=== PATIENT | female | born 2005 | race Caucasian/White ===

== ENCOUNTER 2025-01-14 20:06 | Inpatient (IN) | payer BC ==
[2025-01-14] MEDS ORDERED: Sodium Chloride 0.9% 10 ML Syringe FLUSH PRN (20:29)
[2025-01-14] MEDS ORDERED: Naloxone 0.4 MG/ML SDV IVPUSH PRN (20:35)
[2025-01-14 20:36] LABS: BASOPHILS ABSOLUTE AUTO 0.1 K/mm3 (0.0-0.3); BASOPHILS PERCENT AUTO 0.4 % (0.0-1.0); EOSINOPHILS ABSOLUTE AUTO 0.0 K/mm3 (0.0-0.7); EOSINOPHILS PERCENT AUTO 0.0 % (0.0-5.0); IMMATURE GRAN ABSOLUTE AUTO 0.05 K/mm3 (0.00-0.05); IMMATURE GRAN PERCENT AUTO 0.3 % (0.0-0.4); LYMPHOCYTES ABSOLUTE AUTO 1.1 K/mm3 (2.0-8.8); LYMPHOCYTES PERCENT AUTO 6.5 % (50.0-65.0); MEAN PLATELET VOLUME 10.0 fl (9.4-12.3); MONOCYTES ABSOLUTE AUTO 0.5 K/mm3 (0.1-1.4); MONOCYTES PERCENT AUTO 2.9 % (2.0-10.0); NEUTROPHILS ABSOLUTE AUTO 15.0 K/mm3 (1.5-8.5); NEUTROPHILS PERCENT AUTO 89.9 % (35.0-45.0); NRBC ABSOLUTE 0.00 (0.00-0.03); NRBC PERCENT 0.0 % (0.0-0.2); PLATELET COUNT,PLT 294 K/mm3 (150-400); RED BLOOD CELL COUNT 4.46 M/mm3 (4.10-5.30); WHITE BLOOD CELL COUNT,WBC 16.72 K/mm3 (4.5-13.5)
[2025-01-14] MEDS: Ondansetron 4 MG/2 ML SDV IVPUSH ONE (20:42)
[2025-01-14 20:56] LABS: A/G RATIO 1.1 (1-2); ALANINE AMINOTRANSFERASE,ALT 24.0 U/L (14-59); ASPARTATE AMNIOTRANSFERASE,AST 18.0 U/L (15-37); BILIRUBIN TOTAL 0.6 mg/dL (0.2-1.0); BLOOD UREA NITROGEN,BUN 17.0 mg/dL (7-18); CARBON DIOXIDE,CO2 25.0 mEq/L (21-32); CHLORIDE,CL 101.0 mEq/L (98-107); CREATININE 0.8 mg/dL (0.55-1.02); EST CRCL DRUG DOSING (CG) 118.21 mL/min; ESTIMATED GFR 109.0 mL/min (>60); GLUCOSE RANDOM 133.0 mg/dL (70-99); POTASSIUM,K 3.9 mEq/L (3.5-5.1); PROTEIN TOTAL,TP 7.5 g/dl (6.4-8.2); SODIUM,NA 137.0 mEq/L (136-145)
[2025-01-14] MEDS: Iopamidol 612 MG/ML 100 ML Bottle IVPUSH ONE (21:23)
[2025-01-14] MEDS: Sodium Chloride 0.9% 10 ML Syringe FLUSH ONE (21:24)
[2025-01-14] MEDS: Meropenem 1 GM SDV IVPUSH ONE (22:12)
[2025-01-14] MEDS: metroNIDAZOLE/Normal Saline 500 MG in Premix Bag 1 BAG IV ONE (22:12)
[2025-01-14] MEDS ORDERED: Ondansetron 4 MG/2 ML SDV IVPUSH PRN (22:19)
[2025-01-14] MEDS: Ketorolac 30 MG/ML SDV IVPUSH ONE (22:44)
[2025-01-14] MEDS: Ketorolac 30 MG/ML SDV IM ONE (22:45)
[2025-01-15] MEDS: Lactated Ringers 1,000 ML IV ONE (00:32)
[2025-01-15] MEDS: Ketorolac 15 MG/ML SDV IVPUSH PRN (04:47)
[2025-01-15] MEDS: metroNIDAZOLE/Normal Saline 500 MG in Premix Bag 1 BAG IV SCH (06:53)
[2025-01-15 08:11] LABS: BASOPHILS ABSOLUTE AUTO 0.1 K/mm3 (0.0-0.3); BASOPHILS PERCENT AUTO 0.5 % (0.0-1.0); EOSINOPHILS ABSOLUTE AUTO 0.1 K/mm3 (0.0-0.7); EOSINOPHILS PERCENT AUTO 0.5 % (0.0-5.0); IMMATURE GRAN ABSOLUTE AUTO 0.06 K/mm3 (0.00-0.05); IMMATURE GRAN PERCENT AUTO 0.5 % (0.0-0.4); LYMPHOCYTES ABSOLUTE AUTO 2.9 K/mm3 (2.0-8.8); LYMPHOCYTES PERCENT AUTO 22.2 % (50.0-65.0); MEAN PLATELET VOLUME 10.0 fl (9.4-12.3); MONOCYTES ABSOLUTE AUTO 1.0 K/mm3 (0.1-1.4); MONOCYTES PERCENT AUTO 7.9 % (2.0-10.0); NEUTROPHILS ABSOLUTE AUTO 9.0 K/mm3 (1.5-8.5); NEUTROPHILS PERCENT AUTO 68.4 % (35.0-45.0); NRBC ABSOLUTE 0.00 (0.00-0.03); NRBC PERCENT 0.0 % (0.0-0.2); PLATELET COUNT,PLT 238 K/mm3 (150-400); RED BLOOD CELL COUNT 3.68 M/mm3 (4.10-5.30); WHITE BLOOD CELL COUNT,WBC 13.18 K/mm3 (4.5-13.5)
[2025-01-15] MEDS: Lactated Ringers 1,000 ML IV SCH (09:00)
[2025-01-15] MEDS ORDERED: Meropenem 1 GM SDV IVPUSH SCH (10:20)
[2025-01-15] MEDS: Meropenem 500 MG SDV IVPUSH SCH (11:12)
[2025-01-15] MEDS: Lactated Ringers 1,000 ML ONE (11:49)
[2025-01-15] MEDS ORDERED: Ondansetron 4 MG/2 ML SDV ONE (13:08)
[2025-01-15] MEDS ORDERED: Dexamethasone 4 MG/ML 5 ML MDV ONE (13:08)
[2025-01-15] MEDS ORDERED: propofoL 500 MG/50 ML 50 ML ONE (13:08)
[2025-01-15] MEDS ORDERED: fentaNYL 250 MCG/5 ML SDV ONE (13:09)
[2025-01-15] MEDS ORDERED: Ketamine HCL/NACL, ISO-OSM 50 MG/5 ML Syringe ONE (13:09)
[2025-01-15] MEDS ORDERED: Phenylephrine 1% 10 MG/ML SDV ONE (14:02)
[2025-01-15] MEDS ORDERED: Glycopyrrolate 0.2 MG/ML 2 ML SDV ONE (14:03)
[2025-01-15] MEDS ORDERED: Lactated Ringers 1,000 ML ONE (14:06)
[2025-01-15] MEDS ORDERED: Propofol 200 MG/20 ML SDV ONE (14:19)
[2025-01-15] MEDS ORDERED: Ketorolac 30 MG/ML SDV ONE (14:40)
[2025-01-15] MEDS ORDERED: fentaNYL 100 MCG/2 ML SDV IVPUSH PRN (16:16)
[2025-01-15] MEDS ORDERED: Ondansetron 4 MG/2 ML SDV IVPUSH PRN (16:16)
[2025-01-15] MEDS: Acetaminophen/HYDROcodone 325-5 MG Tab PO PRN (18:34)
== END 2025-01-15 19:11 | disposition home or self-care (01) | DRG 234 ==
LOC: JD.ED 20:06 → JD.OB 22:20
PROVIDERS: ADMIT Surgery; ATTEND Surgery
PROC: 0DTJ0ZZ Resection of Appendix, Open Approach (ICD-10-PCS; principal; 2025-01-14)
DX: K35.30 Acute appendicitis with localized peritonitis, without perforation or gangrene (principal); E86.0 Dehydration; Z79.899 Other long term (current) drug therapy; Z98.890 Other specified postprocedural states
CPT/HCPCS: 36415; 74177; 74177-26; 80053; 83690; 84703; 85025; 86140; 96374; 96375; 99285; 99285-25; A9270-GY; J1100; J1171; J1596; J1836; J1885; J2185; J2371; J2405; J2704; J3010; J3490; J7030; J7120; Q9967